=== PATIENT | female | born 1995 ===

== ENCOUNTER 2019-02-24 16:08 | Emergency (ER) | payer BC, MEDICAID ==
[2019-02-24] MEDS ORDERED: Sodium Chloride 0.9% 10 ML Syringe FLUSH PRN (16:55)
[2019-02-24 16:59] LABS: ANION GAP 16.9 mmol/L (10-20); CHLORIDE,CL 105 mmol/L (54-184); SODIUM,NA 140 mmol/L (69-191)
[2019-02-24] MEDS ORDERED: Iopamidol 612 MG/ML 100 ML Bottle IVPUSH ONE (17:11)
[2019-02-24 18:02] VITALS: BP 121/73; PULSE 71
--- NOTE | 2019-02-24 18:15 | CT ---
[id number] CT/CT Abdomen Pelvis W IV EXAM: CT Abdomen Pelvis W IV CLINICAL DATA: PERIUMBILICAL ABDOMINAL PAIN COMPARISON STUDY: None. FINDINGS: Lung bases are clear. Liver, spleen, gallbladder, pancreas, adrenal glands, and kidneys are unremarkable. No urinary tract calculi or obstruction. No bowel obstruction or inflammation. Appendix is normal. No lymphadenopathy, free fluid, or pneumoperitoneum. Uterus and adnexal regions are unremarkable. Urinary bladder is unremarkable. Scattered mild changes of spondylosis throughout the spine. No fracture or osseous lesion. IMPRESSION: Negative examination of the abdomen and pelvis. Jordan Simpson MD 02/24/19 [id number] Thank you for allowing us to participate in the care of your patient.
--- NOTE | 2019-02-24 18:57 | EDM.PDOC ---
ED HPI GENERAL MEDICAL PROBLEM - General Chief Complaint: Abdominal Pain Stated Complaint: PAIN IN [place] Time Seen by Provider: 02/24/19 16:20 Source of Information: Reports: Patient History Limitations: Reports: No Limitations - History of Present Illness INITIAL COMMENTS - FREE TEXT/NARRATIVE: Pt. presents to ER with complaints of periumbilical abdominal pain. She states that the discomfort started 2 days ago. The pain is constant and does not radiate. No fever or chills. Appetite has been adequate. Denies any blood in her stools. No nausea, vomiting, or diarrhea. Pt. states that she has been doing a lot of lifting (50# bags of feed) which may have caused an injury. Onset: Today Onset Date: 02/24/19 Location: Reports: Abdomen Quality: Reports: Ache Severity: Mild Middle Abdominal Pain Score (Numeric/FACES): 6 - Related Data Allergies Allergy/AdvReac Type Severity Reaction Status Date / Time No Known Allergies Allergy Verified 02/24/19 16:38 Home Meds: Home Meds FLUoxetine [PROzac] 60 mg PO DAILY 05/28/14 [History] Metoprolol Succinate [Toprol Xl] 50 mg PO DAILY 02/24/19 [History] SUMAtriptan Succinate [Imitrex] 100 mg PO Q2H PRN 02/24/19 [History] Topiramate [Topamax] 50 mg PO BID 02/24/19 [History] Past Medical History Cardiovascular History: Reports: Hypertension Neurological History: Reports: Migraines Psychiatric History: Reports: Anxiety, Depression Social & Family History - Family History Family Medical History: Noncontributory - Tobacco Use Smoking Status *Q: Current Every Day Smoker Years of Tobacco use: 4 Packs/Tins Daily: 1 - Caffeine Use Caffeine Use: Reports: None - Recreational Drug Use Recreational Drug Use: Yes Drug Use in Last 12 Months: Yes Recreational Drug Type: Reports: Marijuana/Hashish Recreational Drug Use Frequency: Daily ED ROS GENERAL - Review of Systems Review Of Systems: See Below Constitutional: Reports: No Symptoms HEENT: Reports: No Symptoms Respiratory: Reports: No Symptoms Cardiovascular: Reports: No Symptoms Endocrine: Reports: No Symptoms GI/Abdominal: Reports: Abdominal Pain : Reports: No Symptoms Musculoskeletal: Reports: No Symptoms Skin: Reports: No Symptoms Neurological: Reports: No Symptoms Psychiatric: Reports: No Symptoms Hematologic/Lymphatic: Reports: No Symptoms Immunologic: Reports: No Symptoms ED EXAM, GENERAL - Physical Exam Exam: See Below Exam Limited By: No Limitations General Appearance: Alert, WD/WN, No Apparent Distress Throat/Mouth: Normal Inspection, Normal Lips, Normal Teeth, Normal Gums, Normal Oropharynx, Normal Voice, No Airway Compromise Head: Atraumatic, Normocephalic Neck: Normal Inspection, Supple, Non-Tender, Full Range of Motion Respiratory/Chest: No Respiratory Distress, Lungs Clear, Normal Breath Sounds, No Accessory Muscle Use, Chest Non-Tender Cardiovascular: Normal Peripheral Pulses, Regular Rate, Rhythm, No Edema, No Gallop, No JVD, No Murmur, No Rub GI/Abdominal: Normal Bowel Sounds, Soft, No Organomegaly, No Distention, No Abnormal Bruit, No Mass, Pelvis Stable, Tender (Female) Exam: Deferred Rectal (Female) Exam: Deferred Back Exam: Normal Inspection, Full Range of Motion Extremities: Normal Inspection, Normal Range of Motion, Non-Tender, No Pedal Edema, Normal Capillary Refill Neurological: Alert, Oriented, CN II-XII Intact, Normal Cognition, Normal Gait, Normal Reflexes, No Motor/Sensory Deficits Psychiatric: Normal Affect, Normal Mood Skin Exam: Warm, Dry, Intact, Normal Color, No Rash Lymphatic: No Adenopathy Course - Vital Signs Last Recorded V/S: Last Vital Signs Temp 36.4 C 02/24/19 18:01 Pulse 71 02/24/19 18:01 Resp 16 02/24/19 18:01 BP 121/73 02/24/19 18:01 Pulse Ox 98 02/24/19 18:01 - Orders/Labs/Meds Orders: Active Orders 24 hr Category Date Time Status Peripheral IV Insertion Adult [OM.PC] Routine Oth 02/24/19 16:56 Ordered Labs: Laboratory Tests 02/24/19 02/24/19 Range/Units 16:28 16:28 WBC 10.8 H (4.0-10.0) x10^3/uL RBC 4.89 (4.00-5.50) x10^6/uL Hgb 14.9 D (12.0-16.0) g/dL Hct 42.5 (33.0-47.0) % MCV 86.9 (78.0-93.0) fL MCH 30.5 (26.0-32.0) pg MCHC 35.1 (32.0-36.0) g/dL RDW Coeff of Aicha 12.8 (10.0-15.0) % Plt Count 360 D (130-400) x10^3/uL Neut % (Auto) 68.7 (50.0-80.0) % Lymph % (Auto) 25.5 (25.0-50.0) % [place] % (Auto) 5.1 (2.0-11.0) % Eos % (Auto) 0.5 (0.0-4.0) % Baso % (Auto) 0.2 (0.2-1.2) % Sodium 140 (69-191) mmol/L Potassium 3.9 (1.5-9.9) mmol/L Chloride 105 (54-184) mmol/L Carbon Dioxide 22 (21-32) mmol/L Anion Gap 16.9 (10-20) mmol/L BUN 12 (7-18) mg/dL Creatinine 0.9 (0.55-1.02) mg/dL Est Cr Clr Drug Dosing 101.60 mL/min Estimated GFR (MDRD) > 60 Glucose 86 (74-106) mg/dL Calcium 8.7 (8.5-10.1) mg/dL Corrected Calcium 8.78 (8.5-10.1) mg/dL Total Bilirubin 0.4 (0.2-1.0) mg/dL AST 16 (15-37) U/L ALT 16 (14-59) U/L Alkaline Phosphatase 116 (46-116) U/L Total Protein 8.2 (6.4-8.2) g/dL Albumin 3.9 (3.4-5.0) g/dL Globulin 4.3 Albumin/Globulin Ratio 0.91 Meds: Medications Discontinued Medications Generic Name Dose Route Start Last Admin Trade Name Freq PRN Reason Stop Dose Admin Iopamidol 100 ml 02/24/19 17:11 02/24/19 17:21 Isovue-300 (61%) IVPUSH 02/24/19 17:12 100 ml ONETIME ONE Administration Sodium Chloride 10 ml 02/24/19 16:55 Saline Flush FLUSH ASDIRECTED PRN Keep Vein Open - Radiology Interpretation Free Text/Narrative:: CT abdomen and pelvis obtained. No obvious pathology noted. Departure - Departure Time of Disposition: 19:01 Disposition: Home, Self-Care 01 Clinical Impression: Abdominal pain - Discharge Information Instructions: Abdominal Pain, Adult, [id number] Referrals: Mariama Mcallister PA-C [Primary Care Provider] - Forms: ED Department Discharge Additional Instructions: There is no evidence of appendicitis, obstruction, or infection noted on the CT scan. If you are still having troubles, follow-up in clinic to set up for an ultrasound. Ibuprofen 200mg 3 every 6 hours. Minimize lifting today and tomorrow. - My Orders Last 24 Hours: My Active Orders 02/24/19 16:56 Peripheral IV Insertion Adult [OM.PC] Routine - Assessment/Plan Last 24 Hours: My Active Orders 02/24/19 16:56 Peripheral IV Insertion Adult [OM.PC] Routine Plan: There is no evidence of appendicitis, obstruction, or infection noted on the CT scan. If you are still having troubles, follow-up in clinic to set up for an ultrasound. Ibuprofen 200mg 3 every 6 hours. Minimize lifting today and tomorrow.
== END 2019-02-24 18:30 | disposition home or self-care (01) ==
LOC: VM.ED 16:08
DX: R10.33 Periumbilical pain (principal); I10 Essential (primary) hypertension; F32.9 Major depressive disorder, single episode, unspecified; F17.210 Nicotine dependence, cigarettes, uncomplicated; Z79.899 Other long term (current) drug therapy
CPT/HCPCS: 36415; 74177; 80053; 85025; 99284-25; Q9967